=== PATIENT | female | born 1965 | race Caucasian/White ===

== ENCOUNTER 2025-01-04 06:00 | Outpatient (CLI) | payer OTHER ==
[~2025-01-04] VITALS: Ht 149.9 cm; Wt 72.6 kg
[~2025-01-04 06:00] MED LIST: DICY20TA PO; ENALAPRIL-HCTZ1 EACH PO; PEPCID AC20 MG PO; PHENERGAN25 MG PO; PRILOSEC OTC20 MG PO; SYNTHROID88 MCG PO
== END 2025-01-04 06:01 | disposition home or self-care (01) ==
LOC: LAB 06:00 → MEDJ 17:31 → SURH 17:31 → MEDJ 17:36 → SURH 01-09 07:00 → EDSTATUS 01-09 12:15
PROVIDERS: ATTEND Colon & Rectal Surgery
DX: C18.0 Malignant neoplasm of cecum (principal); Z85.038 Personal history of other malignant neoplasm of large intestine

== ENCOUNTER 2025-01-04 17:44 | Inpatient (IN) | payer OTHER ==
[~2025-01-04] VITALS: Ht 149.9 cm; Wt 72.6 kg
[2025-01-04] MEDS ORDERED: 0.9 % SODIUM CHLORIDE 1,000 ML IV SCH (18:15)
[2025-01-04] MEDS ORDERED: FUROsemide 20 MG/2 ML VIAL IV SCH (18:30)
[2025-01-04] MEDS ORDERED: SOD FERRIC GLUC COMPLX/SUCROSE 62.5 MG in 0.9 % SODIUM CHLORIDE 50 ML IV SCH (21:00)
[2025-01-04] MEDS ORDERED: Cyanocobalamin/Mecobalamin 1 TAB.SL SL SCH (21:00)
[2025-01-05 01:02] VITALS: BP 129/80
[2025-01-05] MEDS ORDERED: PATIENTS OWN MEDICATION (MEDICAMENTO EN PISO) PO SCH (06:00)
[2025-01-05 07:55] VITALS: BP 133/63; O2SAT 97
[2025-01-05] MEDS ORDERED: Cyanocobalamin/Mecobalamin 1 TAB.SL SL SCH (09:00)
[2025-01-05] MEDS ORDERED: AMLODIPINE BESYLATE 2.5 MG TABLET PO SCH (09:00)
[2025-01-05] MEDS ORDERED: FAMOTIDINE/PF 20 MG/2 ML VIAL IV SCH (09:00)
[2025-01-05] MEDS ORDERED: SOD FERRIC GLUC COMPLX/SUCROSE 62.5 MG in 0.9 % SODIUM CHLORIDE 50 ML IV SCH (09:00)
[2025-01-05] MEDS ORDERED: ENALAPRILAT DIHYDRATE 1.25 MG/ML VIAL IV PRN (10:15)
[2025-01-05 17:44] VITALS: BP 164/71
[2025-01-06 02:24] VITALS: BP 124/75; O2SAT 95
[2025-01-06 05:09] LABS: HEMATOCRIT 39.8 % (36.0-45.00); HEMOGLOBIN 12.5 g/dL (12.0-15.00); MEAN CELL VOLUME 71.4 fL (80.00-100.00); MEAN CORPUSCULAR HEMOGLOBIN 22.5 pg (27.00-32.0); MEAN CORPUSCULAR HGB CONC 31.5 g/dl (32.0-36.0); PLATELET COUNT 191 K/uL (150-450); RED BLOOD COUNT 5.58 M/uL (4.00-6.00)
[2025-01-06 05:35] LABS: RED CELL DISTRIBUTION WIDTH 33.3 % (11.5-14.5)
[2025-01-06] MEDS ORDERED: SOD FERRIC GLUC COMPLX/SUCROSE 62.5 MG/5 ML AMPUL IV ONE (08:06)
[2025-01-06 08:47] VITALS: BP 179/84; O2SAT 97
[2025-01-06 17:48] VITALS: BP 170/81
[2025-01-07 04:07] VITALS: BP 127/62; O2SAT 96
[2025-01-07] MEDS ORDERED: SOD FERRIC GLUC COMPLX/SUCROSE 62.5 MG/5 ML AMPUL IV ONE (07:32)
[2025-01-07 08:48] VITALS: BP 146/82; O2SAT 99
[2025-01-07 09:20] LABS: HEMATOCRIT 44.5 % (36.0-45.00); HEMOGLOBIN 13.9 g/dL (12.0-15.00); MEAN CORPUSCULAR HEMOGLOBIN 22.8 pg (27.00-32.0); MEAN CORPUSCULAR HGB CONC 31.2 g/dl (32.0-36.0); PLATELET COUNT 198 K/uL (150-450); RED BLOOD COUNT 6.09 M/uL (4.00-6.00); RED CELL DISTRIBUTION WIDTH 33.9 % (11.5-14.5)
[2025-01-07] MEDS ORDERED: INTEGRA PLUS C1 EACH PO (14:33)
[2025-01-07] MEDS ORDERED: Neurin-Sl Tablet Sl SL (14:33)
== END 2025-01-07 14:42 | disposition home or self-care (01) | DRG 812 ==
LOC: MEDI 17:44 → MEDJ 17:47
PROVIDERS: Internal Medicine; ADMIT Internal Medicine Geriatric Medicine; ATTEND Internal Medicine Geriatric Medicine
PROC: 30233N1 Transfusion of Nonautologous Red Blood Cells into Peripheral Vein, Percutaneous Approach (ICD-10-PCS; principal; 2025-01-05)
DX: D64.9 Anemia, unspecified (principal); C18.0 Malignant neoplasm of cecum; D63.0 Anemia in neoplastic disease; I10 Essential (primary) hypertension; E03.9 Hypothyroidism, unspecified; E66.9 Obesity, unspecified

== ENCOUNTER 2025-02-20 09:45 | Inpatient (IN) | payer OTHER ==
[~2025-02-20] VITALS: Ht 149.9 cm; Wt 73.9 kg
[~2025-02-20 09:45] MED LIST changes: +INTEGRA PLUS C1 EACH PO; +Neurin-Sl Tablet Sl SL
[2025-02-27] MEDS ORDERED: CEFTRIAXONE SODIUM 2,000 MG VIAL ONE (06:52)
[2025-02-27] MEDS ORDERED: METRONIDAZOLE/SODIUM CHLORIDE 500 MG/100 ML PIGGYBACK IV ONE (06:52)
[2025-02-27] MEDS ORDERED: BUPIVACAINE HCL/MPF 0.5% 30ML VIAL ONE (06:58)
[2025-02-27] MEDS ORDERED: LIDOCAINE HCL 1%/EPINEPHRINE 20ML VIAL IJ ONE (06:59)
[2025-02-27] MEDS ORDERED: SUGAMMADEX SODIUM 200 MG/2 ML VIAL IV ONE (10:17)
[2025-02-27] MEDS ORDERED: ONDANSETRON HCL 2 MG/ML VIAL IV PRN (10:45)
[2025-02-27] MEDS ORDERED: OxyCODONE HCL 5 MG TABLET (ROXICODONE) PO PRN (10:45)
[2025-02-27] MEDS ORDERED: MORPHINE SULFATE 4 MG/ML CARTRIDGE IV PRN (10:45)
[2025-02-27] MEDS ORDERED: RINGERS SOLUTION,LACTATED 1,000 ML IV SCH (10:45)
[2025-02-27] MEDS ORDERED: ENALAPRILAT DIHYDRATE 1.25 MG/ML VIAL IV PRN (11:45)
[2025-02-27] MEDS ORDERED: MORPHINE SULFATE 4 MG/ML VIAL IV ONE ×2 (12:00→14:30)
[2025-02-27 12:51] LABS: BASO % 0.2 % (0.1-1.2); EOS # 0.01 (0.04-0.54); EOS % 0.1 % (0.7-7.0); HEMATOCRIT 38.4 % (34.1-44.9); LYMPH # 0.81 (1.18-3.74); LYMPH % 6.6 % (19.3-53.1); MEAN CORPUSCULAR HEMOGLOBIN 25.3 pg (25.6-32.2); MONO # 0.47 (0.24-0.82); MONO % 3.8 % (4.7-12.5); NEUT # 10.97 (1.56-6.13); PLATELET COUNT 149 K/uL (163-369); RED BLOOD COUNT 4.74 M/uL (3.93-5.22); RED CELL DISTRIBUTION WIDTH 19.1 % (11.6-14.4)
[2025-02-27] MEDS ORDERED: SIMETHICONE 125 MG CAPSULE PO SCH (13:00)
[2025-02-27] MEDS ORDERED: HYOSCYAMINE SULFATE 0.125 MG TAB.SUBL SL SCH (13:00)
[2025-02-27] MEDS ORDERED: ACETAMINOPHEN 500 MG GEL..CAP PO SCH (14:00)
[2025-02-27] MEDS ORDERED: GABAPENTIN 300 MG CAPSULE PO SCH (17:00)
[2025-02-27] MEDS ORDERED: CELECOXIB 200 MG CAPSULE PO SCH (17:00)
[2025-02-27] MEDS ORDERED: POLYETHYLENE GLYCOL 3350 17 GM BLIST.PACK PO SCH (17:00)
[2025-02-27] MEDS ORDERED: METOCLOPRAMIDE HCL 5 MG/ML VIAL IV SCH (17:00)
[2025-02-27] MEDS ORDERED: SIMETHICONE 125 MG CAPSULE PO ONE (17:08)
[2025-02-27] MEDS ORDERED: GABAPENTIN 300 MG CAPSULE PO ONE (17:08)
[2025-02-27] MEDS ORDERED: HYOSCYAMINE SULFATE 0.125 MG TAB.SUBL ONE (17:08)
[2025-02-27] MEDS ORDERED: CELECOXIB 200 MG CAPSULE PO ONE (17:09)
[2025-02-27 18:21] VITALS: BP 154/78; O2SAT 95
[2025-02-27] MEDS ORDERED: FAMOTIDINE/PF 20 MG/2 ML VIAL IV PUSH SCH (21:00)
[2025-02-28 01:00] VITALS: BP 129/74; O2SAT 96
[2025-02-28] MEDS ORDERED: PATIENTS OWN MEDICATION (MEDICAMENTO EN PISO) PO SCH (06:00)
[2025-02-28 06:53] LABS: BASO % 0.3 % (0.1-1.2); EOS # 0.02 (0.04-0.54); EOS % 0.3 % (0.7-7.0); HEMATOCRIT 35.9 % (34.1-44.9); HEMOGLOBIN 11.4 g/dL (11.2-15.7); LYMPH # 1.49 (1.18-3.74); LYMPH % 22.9 % (19.3-53.1); MONO # 0.57 (0.24-0.82); MONO % 8.8 % (4.7-12.5); NEUT # 4.39 (1.56-6.13); NEUT % 67.5 % (34.0-71.1); PLATELET COUNT 146 K/uL (163-369); RED BLOOD COUNT 4.39 M/uL (3.93-5.22); RED CELL DISTRIBUTION WIDTH 18.8 % (11.6-14.4)
[2025-02-28 07:57] LABS: ALBUMIN 2.8 gm/dL (3.4-5.0); CALCIUM 8.2 mg/dL (8.5-10.1); CREATININE SERUM 0.65 mg/dL (0.55-1.02); GFR 92.97; MAGNESIUM 1.7 mg/dL (1.8-2.4); PHOSPHOROUS 3.5 mg/dL (2.5-4.9); POTASSIUM 3.32 mEq/L (3.5-5.1)
[2025-02-28 08:00] VITALS: BP 122/66; O2SAT 98
[2025-02-28] MEDS ORDERED: LACTULOSE 20 G/30 ML BLIST.PACK PO SCH (09:00)
[2025-02-28] MEDS ORDERED: LACTOBACILLUS ACIDOPHILUS 1 CAP CAP PO SCH (09:00)
[2025-02-28] MEDS ORDERED: AMLODIPINE BESYLATE 2.5 MG TABLET PO SCH (09:00)
[2025-02-28] MEDS ORDERED: MAGNESIUM SULFATE IN WATER 50 ML IV NR (09:45)
[2025-02-28] MEDS ORDERED: POTASSIUM CHLORIDE 20MEQ/100ML H2O PB IV NR (09:45)
[2025-02-28 16:43] VITALS: BP 123/65; O2SAT 96
[2025-02-28] MEDS ORDERED: ENOXAPARIN SODIUM 40 MG/0.4 ML SYRINGE SUBCUTANEO SCH (17:00)
[2025-03-01 00:35] VITALS: BP 105/55; O2SAT 95
[2025-03-01 02:00] VITALS: BP 117/71; O2SAT 95
[2025-03-01 07:10] LABS: BASO % 0.3 % (0.1-1.2); EOS # 0.09 (0.04-0.54); EOS % 1.2 % (0.7-7.0); HEMATOCRIT 34.6 % (34.1-44.9); HEMOGLOBIN 10.6 g/dL (11.2-15.7); LYMPH # 1.54 (1.18-3.74); LYMPH % 20.9 % (19.3-53.1); MEAN CORPUSCULAR HEMOGLOBIN 25.1 pg (25.6-32.2); MONO # 0.64 (0.24-0.82); MONO % 8.7 % (4.7-12.5); NEUT # 5.05 (1.56-6.13); NEUT % 68.6 % (34.0-71.1); PLATELET COUNT 141 K/uL (163-369); RED BLOOD COUNT 4.22 M/uL (3.93-5.22); RED CELL DISTRIBUTION WIDTH 18.6 % (11.6-14.4)
[2025-03-01 07:33] LABS: CALCIUM 8.1 mg/dL (8.5-10.1); CREATININE SERUM 0.61 mg/dL (0.55-1.02); GFR 100.05; MAGNESIUM 1.8 mg/dL (1.8-2.4); PHOSPHOROUS 2.8 mg/dL (2.5-4.9); POTASSIUM 3.6 mEq/L (3.5-5.1)
[2025-03-01 08:00] VITALS: BP 121/67; O2SAT 95
[2025-03-01] MEDS ORDERED: ENOXAPARIN SODIUM 40 MG/0.4 ML SYRINGE SUBCUTANEO SCH (09:00)
== END 2025-03-01 12:29 | disposition home or self-care (01) | DRG 331 ==
LOC: O/R 02-27 05:30 → SURG 02-27 07:00
PROVIDERS: Internal Medicine Geriatric Medicine; ADMIT Colon & Rectal Surgery; ATTEND Colon & Rectal Surgery
PROC: 07BB4ZZ Excision of Mesenteric Lymphatic, Percutaneous Endoscopic Approach (ICD-10-PCS; 2025-02-27)
PROC: 07BC4ZZ Excision of Pelvis Lymphatic, Percutaneous Endoscopic Approach (ICD-10-PCS; 2025-02-27)
PROC: 8E0W4CZ Robotic Assisted Procedure of Trunk Region, Percutaneous Endoscopic Approach (ICD-10-PCS; 2025-02-27)
PROC: 0DTF4ZZ Resection of Right Large Intestine, Percutaneous Endoscopic Approach (ICD-10-PCS; principal; 2025-02-27 07:00)
DX: C18.0 Malignant neoplasm of cecum (principal); R59.0 Localized enlarged lymph nodes; K66.0 Peritoneal adhesions (postprocedural) (postinfection); K63.5 Polyp of colon; E03.9 Hypothyroidism, unspecified; E78.5 Hyperlipidemia, unspecified; I10 Essential (primary) hypertension; Z85.038 Personal history of other malignant neoplasm of large intestine
CPT/HCPCS: 44204; 38570; 38571; S2900